=== PATIENT | male | born 1960 | race Caucasian/White ===

== ENCOUNTER 2019-09-23 16:04 | Emergency (ER) | payer OTHER ==
--- NOTE | 2019-09-23 16:09 | PDOC ---
Rapid Medical Evaluation Time Seen by Provider: 09/23/19 16:08 Medical Evaluation: Allergies Allergy/AdvReac Type Severity Reaction Status Date / Time No Known Allergies Allergy Verified 09/23/19 16:07 09/23/19 16:08 HPI: L shoulder pain after fall last week PE: no gross deficits Orders: X-ray Discharge Disposition - Diagnosis Left shoulder strain - Referrals - Patient Instructions - Post Discharge Activity
[2019-09-23 16:10] VITALS: BP 142/88; PULSE 88; TEMP 97.8; BMI 31.0
[2019-09-23] MEDS ORDERED: KETOROLAC TROMETHAMINE 60 MG/2 ML VIAL IM ONE (17:23)
[2019-09-23] MEDS ORDERED: KETOROLAC TROMETHAMINE 60 MG/2 ML VIAL ONE (17:24)
--- NOTE | 2019-09-23 18:04 | PDOC ---
History of Present Illness - General Chief Complaint: Injury Stated Complaint: L/SHOULDER INJURY Time Seen by Provider: 09/23/19 16:08 History Source: Patient Exam Limitations: No Limitations Past History - Travel Traveled outside of the country in the last 30 days: No Close contact w/someone who was outside of country & ill: No - Past Medical History Allergies/Adverse Reactions: Allergies Allergy/AdvReac Type Severity Reaction Status Date / Time No Known Allergies Allergy Verified 09/23/19 16:07 Home Medications: Ambulatory Orders Glyburide/Metformin HCl [Glyburide-Metformin 2.5-500 mg] 1 tab PO ASDIR 09/23/19 Rivaroxaban [Xarelto -] 1 tab PO DAILY 09/23/19 COPD: No Diabetes: Yes HTN: Yes Other medical history: DVT in past - Psycho Social/Smoking Cessation Hx Smoking History: Unknown if ever smoked Hx Alcohol Use: No Drug/Substance Use Hx: No Review of Systems - Review of Systems Able to Perform ROS?: Yes Comments:: 09/23/19 19:31 CONSTITUTIONAL: Absent: fever, chills, diaphoresis, generalized weakness, malaise, loss of appetite HEENT: Absent: rhinorrhea, nasal congestion, throat pain, throat swelling, difficulty swallowing, mouth swelling, ear pain, eye pain, visual Changes CARDIOVASCULAR: Absent: chest pain, loss of consciousness, palpitations, irregular heart rate, peripheral edema RESPIRATORY: Absent: cough, shortness of breath, dyspnea with exertion, orthopnea, wheezing, stridor, hemoptysis MUSCULOSKELETAL: Present: L shoulder pain Absent: arthralgia, joint swelling SKIN: Absent: rash, itching, pallor NEUROLOGIC: Absent: headache, focal weakness or paresthesias, dizziness, unsteady gait, seizure, mental status changes, bladder or bowel incontinence PSYCHIATRIC: Absent: anxiety, depression, suicidal or homicidal ideation, hallucinations. Is the patient limited Divehi proficient: No *Physical Exam - Vital Signs Last Vital Signs Temp Pulse Resp BP Pulse Ox 97.8 F 88 20 142/88 98 09/23/19 16:09 09/23/19 16:09 09/23/19 16:09 09/23/19 16:09 09/23/19 16:09 - Physical Exam 09/23/19 19:32 GENERAL: The patient is awake, alert, and fully oriented, in no acute distress. HEAD: Normal with no signs of trauma. EYES: Pupils equal, round and reactive to light, extraocular movements intact, sclera anicteric, conjunctiva clear. EXTREMITIES: Tenderness to palpation of the left anterior shoulder. Patient unable to lift his arm higher than 40 degrees to the side. Positive empty can test. Equivocal drop arm test on the left. Skin color and temperature are normal with no bruising. Normal range of motion, no edema. NEUROLOGICAL: Normal speech, normal gait. PSYCH: Normal mood, normal affect. SKIN: Warm, Dry, normal turgor, no rashes or lesions noted. ED Treatment Course - Medications Given in the ED: ED Medications Discontinued Medications Generic Name Dose Route Start Last Admin Trade Name Atulq PRN Reason Stop Dose Admin Ketorolac Tromethamine 60 mg 09/23/19 17:23 09/23/19 17:30 Toradol Injection - IM 09/23/19 17:24 60 mg ONCE ONE Administration Oxycodone/Acetaminophen 2 combo 09/23/19 17:23 09/23/19 17:29 Percocet 5/325 - PO 09/23/19 17:24 2 combo ONCE ONE Administration Medical Decision Making - Medical Decision Making 09/23/19 19:37 The patient is a 58-year-old male with no past medical history, presents to the emergency department today for left shoulder pain. 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 He states that since the fall he is unable to lift his arm due to pain. He is concerned that he might have torn his rotator cuff. Denies hitting his head or losing consciousness, patient denies blood thinner use. He is right- handed. A/P: Left shoulder pain. On exam patient with an equivocal drop arm test, positive empty can test, concerning for possible rotator cuff pathology. Decreased range of motion due to pain. X-ray shows no fractures. Percocet and Toradol given in the ER for pain. Instructed patient to follow-up with his pain management doctor for further instruction. Orthopedic follow-up also given. Explained to patient he needs further diagnostic testing from orthopedics to rule out a rotator cuff injury. Discharge home with supportive measures including a sling I discussed the physical exam findings, ancillary test results and final diagnoses with the patient. I answered all of the patient's questions. The patient was satisfied with the care received and felt comfortable with the discharge plan and treatment plan. The Patient agrees to follow up with the primary care physician/specialist within 24-72 hours. Return precautions were given. Discharge - Discharge Information Problems reviewed: Yes Clinical Impression/Diagnosis: Left shoulder pain Qualifiers: Chronicity: acute Qualified Code(s): M25.512 - Pain in left shoulder Condition: Stable Disposition: HOME - Admission No - Follow up/Referral Referrals: Vince Castaneda MD [Primary Care Provider] - - Patient Discharge Instructions Additional Instructions: You were evaluated for your shoulder pain today. I suspect you have a rotator cuff injury given your physical exam findings. Your x-ray did not show any fractures. Please follow-up with orthopedics this week for further management and evaluation of your symptoms. Please wear the sling to keep the arm elevated and reduce pain. You may take your oxycodone at home to help with the pain. Follow the dosing instructions on the bottle. Please follow-up with your pain management doctor for further refills of your oxycodone. You may also take Motrin 800 mg every 8 hours as needed for pain. Return to the ER for worsening pain, numbness and tingling to the extremity or if you have any changes in your symptoms. - Post Discharge Activity Work/Back to School Note: Back to Work
== END 2019-09-23 18:06 | disposition home or self-care (01) ==
LOC: JERFT 16:04
PROC: 3E0233Z Introduction of Anti-inflammatory into Muscle, Percutaneous Approach (ICD-10-PCS; principal; 2019-09-23)
DX: M25.512 Pain in left shoulder (principal); I10 Essential (primary) hypertension; E11.9 Type 2 diabetes mellitus without complications; Z86.718 Personal history of other venous thrombosis and embolism
CPT/HCPCS: 73030-TC-LT-FY; 99284-25

== ENCOUNTER 2020-01-07 06:11 | Day surgery (SDC) | payer OTHER ==
[2019-12-31 16:01] VITALS: BMI 29.0
[2020-01-07] MEDS ORDERED: MIDAZOLAM HCL 2 MG/2 ML SINGLE DOSE VIAL ONE (06:47)
[2020-01-07] MEDS ORDERED: ROPIVACAINE HCL 0.5% 30ML VIAL ONE (06:48)
[2020-01-07] MEDS ORDERED: PROPOFOL 20 ML ONE (07:22)
[2020-01-07] MEDS ORDERED: SUCCINYLCHOLINE CHLORIDE 200 MG/10 ML SYRINGE ONE (07:22)
[2020-01-07] MEDS ORDERED: ceFAZolin SODIUM 1 GM VIAL ONE (07:25)
[2020-01-07] MEDS ORDERED: LIDOCAINE HCL/PF 2% SDV 5ML VIAL ONE (07:25)
[2020-01-07] MEDS ORDERED: DEXAMETHASONE SOD PHOSPHATE 4 MG/1 ML VIAL ONE (07:25)
[2020-01-07] MEDS ORDERED: KETOROLAC TROMETHAMINE 30 MG/1 ML VIAL ONE (07:25)
[2020-01-07] MEDS ORDERED: SODIUM CHLORIDE 0.9% P/F 10 ML VIAL IJ ONE (07:25)
[2020-01-07] MEDS ORDERED: ONDANSETRON 4 MG/2 ML VIAL ONE (07:25)
[2020-01-07] MEDS ORDERED: BUPIVACAINE LIPOSOME/PF (EXPAREL) 266 MG/20 ML VIAL ONE (07:56)
--- NOTE | 2020-01-07 07:58 | HP ---
[facility] - Chief Complaint Chief Complaint: left shoulder pain - Past Medical History Allergies/Adverse Reactions: Allergies Allergy/AdvReac Type Severity Reaction Status Date / Time No Known Allergies Allergy Verified 12/31/19 15:48 - Current Medications Current Medications: Home Medications Medication Instructions Recorded Glyburide/Metformin HCl 1 tab PO BID 09/23/19 [Glyburide-Metformin 2.5-500 mg] Rivaroxaban [Xarelto -] 20 mg PO DAILY 09/23/19 Lisinopril [Zestril] 40 mg PO DAILY 12/31/19 Enoxaparin [Lovenox -] 40 mg SQ DAILY 01/07/20 Oxycodone HCl 30 mg PO QID 01/07/20 [facility]ellite Physical Exam - Physical Examination Vital Signs: Vital Signs Period Temp Pulse Resp BP Sys/Arredondo Pulse Ox Last 24 Hr 98.5 F 87 18 124/71 97 General Appearance: Well Nourished, Well Developed, Alert & Oriented x3 ENT: Clear Lung: Normal air movement Extremities: Other (left shoulder- + ttp, decr rom, + neer, + morton, + empty can, nvi) Neurological: Intact, Alert, Oriented [facility]ellite Impression/Plan - Impression/Plan Impression: left shoulder impingement, rct Operative Procedure: left shoulder arthroscopy with SAD and possible RCR Date to be Performed: 01/07/20
[2020-01-07] MEDS ORDERED: PHENYLEPHRINE HCL 10 MG/1 ML SINGLE DOSE VIAL ONE (08:29)
--- NOTE | 2020-01-07 09:30 | OP ---
Operative Note - Note: Operative Date: 01/07/20 ([place]) Pre-Operative Diagnosis: right shoulder impingement, rct Operation: right shoulder arthroscopy with RCR, SAD, MIKE Post-Operative Diagnosis: Same as Pre-op Surgeon: Hossein Hobbs Fishing Worker: Kamaljit Baca Anesthesiologist/FBI INVESTIGATOR: Jonn Birch Anesthesia: General, Local Specimens Removed: shavings Estimated Blood Loss (mls): 5
[2020-01-07] MEDS ORDERED: PROMETHAZINE HCL 25 MG/1 ML VIAL IVPUSH PRN (10:18)
[2020-01-07] MEDS ORDERED: ONDANSETRON 4 MG/2 ML VIAL IVPUSH PRN (10:18)
[2020-01-07 10:26] VITALS: TEMP 98.4
[2020-01-07 12:35] VITALS: BP 130/72; PULSE 82
--- NOTE | 2020-01-08 00:40 | OP ---
DATE OF OPERATION: 01/07/2020 PREOPERATIVE DIAGNOSIS: Left shoulder impingement syndrome and rotator cuff tear. Adhesive capsulitis. POSTOPERATIVE DIAGNOSIS: Left shoulder impingement syndrome and rotator cuff tear. Adhesive capsulitis. PROCEDURE: Left shoulder arthroscopy, subacromial decompression, and arthroscopic rotator cuff repair. Also distal clavicle excision, manipulation under anesthesia. SURGEON: Haja Gaston M.D. SOFTWARE RECRUITER: BERNARD Gomez. ARMAMENT INSTALLER: Jonn Birch CRNA. ANESTHESIA: A left long-acting interscalene block with LMA. DRAINS: None. COMPLICATIONS: None. BLOOD LOSS: Minimal. BLOOD GIVEN: None. SPECIMEN: Arthroscopic shavings. FLUID REPLACEMENT: 1500 mL Plasmalyte. INDICATION: This patient is a 59-year-old male with the preoperative diagnosis of left shoulder impingement syndrome and rotator cuff tear. After understanding the potential risks, complications, alternatives, benefits to surgery versus nonsurgical treatment, the patient elected to undergo this procedure. We had extensive preoperative discussion about the possibility of it being irreparable rotator cuff tear. He understands we might be able to fix a portion of it or none at all that would affect his function and likelihood for posttraumatic arthritis, strength, symptoms, etc. He understands all of these issues, has elected to go forward with surgery. DESCRIPTION OF PROCEDURE; The patient was brought to the operating room, peripheral IV placed, IV sedation given, 2 g of IV Ancef were given. A long-acting left interscalene block was performed. LMA anesthesia was induced. She was placed into the beach chair position with ample padding throughout. I then did a manipulation under anesthesia and his left shoulder was extremely stiff. Before the manipulation I could only forward flex him and abduct him about 60 degrees; after the manipulation, I was able to forward flex him and abduct him at least 130 degrees. He basically had full range of motion afterwards, but beforehand he was extremely tight and stiff. He had significant adhesive capsulitis and a frozen shoulder. After the manipulation under anesthesia, the left upper extremity was prepped and draped in sterile fashion. The bony landmarks are marked out with a marking pen. The posterior portal was established. The diagnostic glenohumeral arthroscopy was performed. Patient had a full thickness rotator cuff tear. There was scar tissue in the area that clearly had been there for quite some time. There was grade 2/grade 3 chondromalacia changes of the central portion of the glenoid. There was grade 3/grade 4 chondromalacia changes of the entire weightbearing portion of the humeral head. Humeral head was . The biceps tendon was subluxed off to the side. The labrum was intact. Next our attention turned to the subacromial space. The patient had a lot of inflammatory bursitis. A lateral portal was established under direct visualization using a spinal needle, a number 15 scalpel blade, and a green cannula was introduced into the subacromial space. The patient, I did an extensive soft tissue bursectomy/soft tissue debridement with the ArthroCare wand and the straight shaver, revealing a very large subacromial spur and a moderate sized distal subclavicular spur. Using combination of the 5.5 mm oval bur I was able to do a bony decompression on the undersurface of the acromion and also decompression removing the bone spurs on the undersurface of the distal clavicle. I then fine tuned the bony decompression by putting the bur into reverse and using the straight shaver. Photographs taken before, during, and after. Once this was done, the decompression was completed. I put the arm through a range of motion. There was no point of compression of the rotator cuff. The top surface of the rotator cuff after extensive soft tissue debridement/bursectomy showed a full thickness tear. There was an exposed humeral head. The very posterior portion of the rotator cuff was intact. The posterior aspect of the supraspinatus was able to be mobilized to the lateral articular margin, but not over further than that. The entire anterior portion was not able to be mobilized. I made great attempts to mobilize it, it just could not come over; that portion would not be fixable. Next, using the [employer] needle passer, I put in 3 Fiberwire in the anterior/central portion of the rotator cuff/supraspinatus. We then brought these out through an Arthrex Swivelock anchor. I did an arthroscopic repair of this portion of the cuff. I then did the same technique using 2 Fiberwire/4 tails through another Arthrex Swivelock anchor and put in arthroscopically. I would estimate I was able to repair the entire posterior aspect of the rotator cuff and the central portion of the cuff. The anterior portion as mentioned was not able to be mobilized. I would estimate I was able to repair about 65% of the rotator cuff. The arm was put through a range of motion, the entire construct was directly visualized, seemed to be quite good covering much of the humeral head. The area was copiously irrigated and washed out. All excess saline removed. Arthroscopy portal was closed with 3-0 nylon sutures. The area was then washed and dried, covered with Aquacel dressing. He was put into a shoulder mobilizer, extubated, and brought to the recovery room in stable condition. Total operative time was about 1 hour. There were no complications during the case. The patient tolerated the procedure quite well and was brought to the ambulatory recovery room. HAJA GASTON M.D. [id number]
--- NOTE | 2020-01-13 14:13 | PATH ---
Surgical Pathology Report Patient Name: CORI BORJA [facility]. Rec. #: [id number] /Age/Gender: 1960 (Age: 59) / M Account: [id number] Location[facility] Taken: 01/07/2020 Received: 01/07/2020 Reported: 01/13/2020 Physicians: Hossein Hobbs M.D. Specimen(s) Received SHAVINGS LEFT SHOULDER Clinical History Left shoulder impingement Final Diagnosis SHOULDER, LEFT, ARTHROSCOPIC SHAVINGS: FIBROSYNOVIAL TISSUE, FIBROCOLLAGENOUS TISSUE, CARTILAGE, BONE AND SKELETAL MUSCLE. Electronically Signed Bianca Franklin M.D. Gross Description Received in formalin, labeled "left shoulder shavings," is a 5.8 x 4.0 x 0.6 cm. aggregate of bosch-yellow soft tissue fragments. A technical support representative portion is submitted in one cassette. /01/08/2020 [facility]01/08/2020
== END 2020-01-07 12:38 | disposition home or self-care (01) ==
LOC: FASU 06:11
PROVIDERS: ATTEND Orthopaedic Surgery
PROC: 0PBB4ZZ Excision of Left Clavicle, Percutaneous Endoscopic Approach (ICD-10-PCS; 2020-01-07)
PROC: 0RNKXZZ Release Left Shoulder Joint, External Approach (ICD-10-PCS; 2020-01-07)
PROC: 0LQ24ZZ Repair Left Shoulder Tendon, Percutaneous Endoscopic Approach (ICD-10-PCS; principal; 2020-01-07 08:20)
PROC: 0RNK4ZZ Release Left Shoulder Joint, Percutaneous Endoscopic Approach (ICD-10-PCS; 2020-01-07 08:20)
DX: M75.122 Complete rotator cuff tear or rupture of left shoulder, not specified as traumatic (principal); M75.42 Impingement syndrome of left shoulder; M75.02 Adhesive capsulitis of left shoulder
CPT/HCPCS: 82962; 88304-TC; 94760